=== PATIENT | female | born 2000 | race American Indian/Alaskan Native ===

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

== ENCOUNTER 2021-12-20 13:38 | Inpatient (IN) | payer MEDICAID ==
[2021-12-21] MEDS ORDERED: Morphine 2 MG/ML SYRINGE IV PRN (00:05)
[2021-12-21] MEDS ORDERED: OXYTOCIN IV SCH ×2 (00:05)
[2021-12-21] MEDS ORDERED: Ropivacaine 100 ML EPIDUR SCH (00:05)
[2021-12-21] MEDS ORDERED: Ondansetron 4 MG/2 ML SDV IVPUSH PRN (00:05)
[2021-12-21] MEDS ORDERED: Lactated Ringers 1,000 ML IV SCH (00:05)
[2021-12-21] MEDS ORDERED: Lactated Ringers 1,000 ML IV ONE (00:05)
[2021-12-21] MEDS ORDERED: SODIUM CHLORIDE 0.9% IV SCH ×2 (00:05)
[2021-12-21] MEDS ORDERED: ePHEDrine 50 MG/ML SDV IV PRN (00:09)
[2021-12-21] MEDS ORDERED: Ibuprofen 200 MG Tab, 24 Tab Bulk Bottle PO PRN (11:00)
[2021-12-21] MEDS ORDERED: Acetaminophen 325 MG Tab, 50 Tab Bulk Bottle PO PRN (11:00)
[2021-12-21] MEDS ORDERED: Docusate Sodium 100 MG Cap PO SCH (13:00)
== END 2021-12-22 11:45 | disposition home or self-care (01) | DRG 807 ==
LOC: JP.OBCHECK 13:38 → JP.ZCENSUS 15:15 → OBSVTOIN 12-21 05:48
PROVIDERS: ADMIT Obstetrics & Gynecology; ATTEND Obstetrics & Gynecology
PROC: 10E0XZZ Delivery of Products of Conception, External Approach (ICD-10-PCS; principal; 2021-12-21)
PROC: 3E033VJ Introduction of Other Hormone into Peripheral Vein, Percutaneous Approach (ICD-10-PCS; 2021-12-21)
PROC: 3E0R3BZ Introduction of Anesthetic Agent into Spinal Canal, Percutaneous Approach (ICD-10-PCS; 2021-12-21)
PROC: 0HQ9XZZ Repair Perineum Skin, External Approach (ICD-10-PCS; 2021-12-21)
DX: O41.03X0 Oligohydramnios, third trimester, not applicable or unspecified (principal); Z37.0 Single live birth; O48.0 Post-term pregnancy; Z3A.40 40 weeks gestation of pregnancy; O70.0 First degree perineal laceration during delivery; Z88.1 Allergy status to other antibiotic agents; Z86.16 Personal history of COVID-19; Z87.440 Personal history of urinary (tract) infections
CPT/HCPCS: 36415; 51702; 81001; 85027; 86850; 86900; 86901; 99211; A9270-GY; J2270; J2405; J2590; J2795; J7030; J7120

== ENCOUNTER 2022-02-22 11:40 | Emergency (ER) | payer MEDICAID ==
[2022-02-22 13:13] VITALS: BP 131/83; PULSE 97
[2022-02-22 14:00] LABS: ESTIMATED GFR 132 mL/min (>60)
== END 2022-02-22 14:20 | disposition home or self-care (01) ==
LOC: JP.ED 11:40
DX: S29.011A Strain of muscle and tendon of front wall of thorax, initial encounter (principal); F17.210 Nicotine dependence, cigarettes, uncomplicated; Z88.0 Allergy status to penicillin
CPT/HCPCS: 36415; 71046; 71046-26; 80053; 83690; 85025; 99284

== ENCOUNTER 2022-02-23 03:14 | Emergency (ER) | payer MEDICAID ==
[2022-02-23 03:42] VITALS: BP 131/77; PULSE 98
[2022-02-23] MEDS ORDERED: Sodium Chloride 0.9% 10 ML Syringe FLUSH PRN (03:47)
[2022-02-23 04:06] LABS: ESTIMATED GFR 127 mL/min (>60)
[2022-02-23] MEDS ORDERED: Iopamidol 612 MG/ML 100 ML Bottle IV STA (04:12)
[2022-02-23] MEDS ORDERED: Sodium Chloride 0.9% 50 ML IV STA (04:12)
[2022-02-23] MEDS ORDERED: Iopamidol 755 Mg/ML 100 ML Bottle IV STA (04:59)
[2022-02-23] MEDS ORDERED: Sodium Chloride 0.9% 100 ML IV STA (04:59)
== END 2022-02-23 06:03 | disposition home or self-care (01) ==
LOC: JP.ED 03:14
DX: A09 Infectious gastroenteritis and colitis, unspecified (principal); Z88.0 Allergy status to penicillin
CPT/HCPCS: 36415; 71275; 74177; 80053; 81001; 85025; 85379; 99285; J3490; Q9967

== ENCOUNTER 2022-08-01 08:45 | Emergency (ER) | payer MEDICAID ==
[2022-08-01 09:15] VITALS: BP 127/81; PULSE 96
[2022-08-01 10:18] LABS: APPEARANCE,URINE CLOUDY (CLEAR); BILIRUBIN,URINE NEGATIVE (NEGATIVE); COLOR,URINE RED (YELLOW); GLUCOSE,URINE NEGATIVE (NEGATIVE); KETONES,URINE NEGATIVE (NEGATIVE); LEUKOCYTE ESTERASE,URINE TRACE (NEGATIVE); NITRITE,URINE NEGATIVE (NEGATIVE); PH,URINE 6.5 (5.0-8.0); PROTEIN,URINE 100 mg/dL (NEGATIVE); UROBILINOGEN,URINE 0.2 EU/dL (0.2-1.0)
[2022-08-01 10:22] LABS: AMORPHOUS SEDIMENT,URINE NOT SEEN; BACTERIA,URINE RARE; EPITHELIAL CELLS,URINE FEW; MUCUS,URINE NOT SEEN; RBC,URINE >100 (0-5)
[2022-08-01 10:23] LABS: OCCULT BLOOD,URINE LARGE (NEGATIVE)
[2022-08-01] MEDS ORDERED: Acetaminophen 325 MG Tab PO ONE (11:22)
== END 2022-08-01 12:05 | disposition home or self-care (01) ==
LOC: JP.ED 08:45
DX: S00.33XA Contusion of nose, initial encounter (principal); Z88.0 Allergy status to penicillin; Y04.2XXA Assault by strike against or bumped into by another person, initial encounter
CPT/HCPCS: 70160; 70160-26; 81001; 81025; 99283

== ENCOUNTER 2022-08-26 12:42 | Emergency (ER) | payer OTHER, MEDICAID ==
[2022-08-26 13:06] VITALS: BP 128/77
[2022-08-26 15:07] VITALS: PULSE 103
[2022-08-26] MEDS ORDERED: Doxycycline 100 MG Cap PO ONE (17:06)
[2022-08-26] MEDS ORDERED: cefTRIAXone 500 MG, Lidocaine 1% 1 ML IM ONE ×2 (17:06)
[2022-08-26] MEDS ORDERED: metroNIDAZOLE 250 MG Tab PO ONE (17:16)
[2022-08-28 09:12] LABS: HBSAG SCREEN Negative (Negative); HCV AB Non Reactive (Non Reactive); HEP A AB, IGM Negative (Negative); HEP B CORE AB, IGM Negative (Negative)
[2022-08-29 06:10] LABS: CHLAMYDIA TRACHOMATIS, NAA Negative (Negative); NEISSERIA GONORRHOEAE, NAA Negative (Negative)
== END 2022-08-26 17:48 | disposition home or self-care (01) ==
LOC: JP.ED 12:42
DX: T76.21XA Adult sexual abuse, suspected, initial encounter (principal); Z72.0 Tobacco use
CPT/HCPCS: 36415; 80074; 87449; 87491; 87591; 96372; 99284; A9270; J0696